=== PATIENT | male | born 1970 | race Caucasian/White ===

== ENCOUNTER 2018-12-14 09:34 | Day surgery (SDC) | payer OTHER ==
[2018-12-13 12:30] VITALS: BMI 32.1
[2018-12-14] MEDS ORDERED: Midazolam HCl 2 mg/2 ml Vial ONE (11:13)
[2018-12-14] MEDS ORDERED: Fentanyl 100 MCG/2 ML VIAL ONE ×2 (11:13)
[2018-12-14] MEDS ORDERED: Bacitracin Zinc Ointment 30 gm TUBE ONE (11:21)
[2018-12-14] MEDS ORDERED: Lidocaine 1% w/Epinephrine 1:100K 20 ML VIAL ONE (11:21)
[2018-12-14] MEDS ORDERED: Ondansetron PF 4 MG/2 ML Vial ONE (15:49)
[2018-12-14] MEDS ORDERED: Lidocaine 1% PF 5 ML VIAL ONE (15:49)
[2018-12-14] MEDS ORDERED: Dexamethasone 20 MG/5 ML VIAL ONE (15:49)
[2018-12-14] MEDS ORDERED: Succinylcholine Chloride 20 MG/ML 10 ml SYRINGE FS ONE (15:49)
[2018-12-14] MEDS ORDERED: PROPOFOL 200 MG/20 ML VIAL ONE (15:49)
--- NOTE | 2018-12-15 09:29 | OP ---
DATE OF PROCEDURE: 12/14/2018 PREOPERATIVE DIAGNOSIS: Left parotid mass. POSTOPERATIVE DIAGNOSIS: Left parotid mass. PROCEDURE PERFORMED: Left superficial parotidectomy with facial nerve dissection using facial nerve monitoring. PROCEDURE IN DETAIL: After consent was obtained, the patient was identified, brought to the OR, placed on the operating table in supine position. General endotracheal anesthesia was obtained. A facial nerve monitor was placed and documented to be functioning. We then proceeded with prepping and draping and positioned the patient and infiltrating 1% lidocaine with 1:100,000 epinephrine into the area of intended incision. The area of incision was demarcated and an incision was made with a 15 blade, and carried down through the skin and subcutaneous tissues. flap was elevated and secured to the skin. We then dissected anterior to the sternocleidomastoid and meticulously dissected down to the level of the pointer cartilage and the posterior belly of the digastric. The trunk of the facial nerve was identified and dissected anteriorly until the superior and inferior vein branches were identified. Then, we continued to identify smaller branches of facial nerve, that then allowed us to redirect our attention back to the tail of the parotid where the mass was encountered. The mass was then dissected hemostatically with bipolar cautery and suture ligations for hemostasis. Ultimately, with care not to avoid the facial nerve, the mass was removed and sent for permanent histologic evaluation. 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 The wound was then closed in layers. A drain was placed and the fascia was reapproximated to the anterior fascia of the sternocleidomastoid. The parotid fascia was reapproximated to the fascia of the sternocleidomastoid with a 3-0 Monocryl. Subcutaneous tissue was closed with 5-0 Monocryl and the skin was closed with 6-0 Prolene. Sterile dressing was applied. The patient was awakened, extubated, and taken to recovery room in stable condition prior to discharge home with facial nerve functioning normally. Job ID: [id number]
== END 2018-12-14 15:20 | disposition home or self-care (01) ==
LOC: SDC 09:34
PROVIDERS: ATTEND Specialist
PROC: 0CB90ZZ Excision of Left Parotid Gland, Open Approach (ICD-10-PCS; principal; 2018-12-14)
PROC: 00BM0ZZ Excision of Facial Nerve, Open Approach (ICD-10-PCS; principal; 2018-12-14)
DX: K11.8 Other diseases of salivary glands (principal); M26.609 Unspecified temporomandibular joint disorder, unspecified side; H93.8X3 Other specified disorders of ear, bilateral
CPT/HCPCS: 88307; 93005; 93010; J1100; J2001; J2250; J2405; J2704; J3010

== ENCOUNTER 2020-05-22 09:46 | Outpatient (CLI) | payer OTHER ==
--- NOTE | 2020-05-22 10:49 | MRI ---
MRI Lower Ext Jt Rt WO Con History: Medial meniscal tear Comparison: Radiograph May 19, 2020 Findings: Medial meniscus: Low-grade undersurface fraying posterior horn body junction and medial men iscal body without displaced tear. Lateral meniscus: Intact. The ACL, PCL, MCL and LCL are all normal. Extensor mechanism: Quadriceps tendon, patella and patellar tendon are intact. Cartilage: Patellofemoral compartment: Small to moderate chondral delamination of the medial patellar facet sol uring 11 mm in transverse by craniocaudad dimension of 5 mm, 50% depth. Adjacent chondral fraying. There also a few high-grade 75% chondral fissures of the inferior trochlear groove. Medial compartment: Grade II chondromalacia predominantly fraying throughout the medial compartment. Lateral compartment: Intact Soft tissues: Moderate popliteal cyst without dehiscence. Small volume joint effusion. No free bodies are appreciated. Muscles: Muscle signal and bulk is normal. Impression: 1. Low-grade undersurface fraying of the medial meniscal body and posterior horn body junction. No di splaced tear. 2. Intact cruciate ligaments and collateral ligaments. 3. Small popliteal cyst without dehiscence. 4. Focal 50% chondral delamination at risk for displacement of the medial patellar facet measuring 11 mm in transverse with a craniocaudal dimension of 5 mm. 5. 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
== END 2020-05-22 09:47 | disposition home or self-care (01) ==
LOC: SCSMRI 09:46
PROVIDERS: ATTEND Orthopaedic Surgery
DX: S83.241A Other tear of medial meniscus, current injury, right knee, initial encounter (principal); M71.21 Synovial cyst of popliteal space [Baker], right knee; M94.261 Chondromalacia, right knee

== ENCOUNTER 2020-06-06 06:58 | Outpatient (CLI) | payer OTHER ==
[2020-06-06 16:35] LABS: #Basophils 0.1 thou/uL (0.0-0.2); #Eosinphils 0.6 thou/uL (0.0-0.7); #Lymphocytes 2.2 thou/uL (1.20-3.40); #Monocytes 0.8 thou/uL (0.11-0.59); #Neutrophils 3.3 thou/uL (1.40-6.50); %Basophils 1.2 % (0.0-1.0); %Lymphocytes 31.5 % (21.0-51.0); %Monocytes 11.7 % (0.0-10.0); %Neutrophils 47.6 % (42.0-75.0); Hemoglobin 17.9 g/dL (14.0-18.0); Mean Corpuscular Volume 91.3 fL (78.0-98.0); Mean Platelet Volume 8.6 fL (7.4-10.4); Platelet Count 300 thou/uL (130-400); RBC Distribution Width 11.8 % (11.5-14.5); Red Blood Cell (RBC) Count 5.77 mill/uL (4.70-6.10)
[2020-06-06 16:36] LABS: Anion Gap 14 mmol/L (10-20); BUN (Urea Nitrogen) 14 mg/dL (8.9-20.6); Calc. Creatinine Clearance 0 mL/min (70-130); Calcium 9.5 mg/dL (7.8-10.44); Carbon Dioxide 22 mmol/L (22-29); Chloride 109 mmol/L (98-107); Estimated GFR-MDRD 79; Glucose 68 mg/dL (70-105); Potassium 4.1 mmol/L (3.5-5.1); Sodium 141 mmol/L (136-145)
[2020-06-07 12:01] LABS: SARS-CoV-2 MS2 Positive; SARS-CoV-2 N Gene Negative; SARS-CoV-2 S Gene Negative; SARS-CoV-2 by NAA Not Detected (NotDetected); SARS-CoV-2 orf1ab Negative
--- NOTE | 2020-06-10 14:19 | EKG ---
Test Reason : PREOP Blood Pressure : / mmHG Vent. Rate : 062 BPM Atrial Rate : 062 BPM P-R Int : 144 ms QRS Dur : 086 ms QT Int : 404 ms P-R-T Axes : 068 058 057 degrees QTc Int : 410 ms Normal sinus rhythm Normal ECG Confirmed by MAINOR HUANG ([id number]) on 06/10/2020 2:19:18 PM Referred By: IERO Confirmed By:MAINOR HUANG
== END 2020-06-06 06:59 | disposition home or self-care (01) ==
LOC: LABBT 06:58
PROVIDERS: ATTEND Orthopaedic Surgery
DX: Z01.818 Encounter for other preprocedural examination (principal); Z20.828 Contact with and (suspected) exposure to other viral communicable diseases; M22.8X1 Other disorders of patella, right knee
CPT/HCPCS: 80048; 85025; 87635; 93005; 93010; U0003

== ENCOUNTER 2020-06-11 07:23 | Day surgery (SDC) | payer OTHER ==
[2020-06-09 11:52] VITALS: BMI 32.1
[2020-06-11] MEDS ORDERED: PROPOFOL 20 ML ONE (08:09)
[2020-06-11] MEDS ORDERED: Midazolam HCl 2 mg/2 ml Vial ONE (08:18)
[2020-06-11] MEDS ORDERED: Fentanyl 100 MCG/2 ML VIAL ONE (08:18)
[2020-06-11] MEDS ORDERED: Famotidine/PF 20 mg/2ml Vial ONE (08:18)
[2020-06-11] MEDS ORDERED: Bupivacaine HCl 0.5%/Epinephrine 1:200,000/PF 30 ml Vial ONE (08:25)
[2020-06-11] MEDS ORDERED: Bupivacaine/Epinephrine 0.25% 30 ML VIAL ONE (08:25)
[2020-06-11] MEDS ORDERED: PROPOFOL 200 MG/20 ML VIAL ONE (09:32)
[2020-06-11] MEDS ORDERED: Metoclopramide HCl 10 MG/2 ML VIAL ONE (09:32)
[2020-06-11] MEDS ORDERED: Dexamethasone 20 MG/5 ML VIAL ONE (09:32)
[2020-06-11] MEDS ORDERED: Bupivacaine PF 0.5% 30 ML VIAL ONE (09:32)
[2020-06-11] MEDS ORDERED: Lidocaine 2% w/Epinephrine 1:200K 20 ML VIAL ONE (09:32)
[2020-06-11] MEDS ORDERED: Lidocaine 1% PF 5 ML VIAL ONE (09:32)
[2020-06-11] MEDS ORDERED: Ketorolac Tromethamine 30 MG/ML VIAL ONE (09:32)
[2020-06-11] MEDS ORDERED: Ondansetron PF 4 MG/2 ML Vial ONE (09:32)
--- NOTE | 2020-06-12 03:28 | OP ---
DATE OF PROCEDURE: 06/11/2020 PREOPERATIVE DIAGNOSIS: Right knee unstable chondral flap of the patella. POSTOPERATIVE DIAGNOSES: 1. Right knee unstable chondral flap of the patella. 2. Posterior horn medial meniscus tear. PROCEDURES PERFORMED: 1. Right knee arthroscopy with possible medial meniscectomy. 2. Chondroplasty of the patella. SHOE WORKER: There was no media center assistant. ANESTHESIA: The patient did have a general anesthetic as well as a local knee block. COMPLICATIONS: There were no complications. DISPOSITION: He did go to recovery room in stable condition. INDICATIONS: This is a 49-year-old male who comes in complaining of right knee pain and catching. On MRI, he was found to have an unstable chondral flap of the patella. At this time, he opted to have surgery. DESCRIPTION OF PROCEDURE: After all appropriate consent forms were explained and signed, he was taken to the operating room and at this time was given general anesthetic. Once the level of anesthesia was appropriate, tourniquet was placed on the right thigh. Leg was then placed in arthroscopic leg zavala. The limb was then prepped and draped in a standard surgical fashion. The limb was exsanguinated and the tourniquet was taken up to 300 mmHg. An inferolateral portal was established. Scope was placed into the knee joint. A needle localization technique was then used to make a medial working portal. Diagnostic arthroscopy commenced. In the notch, the ACL and PCL were probed and found to be intact. There was a dense piece of cartilage sitting in the medial compartment. This was removed with a shaver. The medial compartment was evaluated. Overall, medial articular tendon was in good condition. There was an area on the femur, which was fairly large in size, slightly greater than 2 cm, which showed some grade 2 changes with some cobblestone appearance to the medial femoral condyle. Significant treatment was needed. The medial meniscus was probed and found to have a tear in the posterior horn. A partial meniscectomy was performed using meniscal biter shaver back to a stable base. Lateral compartment showed the femur and tibia both to be intact. We then went into the lateral gutter. There was a dense piece of a small cartilage there, which we removed with a shaver. No more loose pieces were noted. The medial gutter did not have any loose pieces noted. On the patellofemoral joint, we found an area of the patella. There was some grade 2 nearing grade 3 changes, unstable chondral flaps was noted. This was more likely the area of the donor lesion, where the loose piece of cartilage was found slightly earlier, and the edges were just taken down to a stable base at this time with the shaver. The went through the knee one more time looking for any remaining loose pieces, and there were none. We thus removed the camera, drained the knee, and closed this portal with simple nylon stitch. A bulky sterile dressing was applied. Tourniquet was let down. Toes pinked up nicely. The patient was awakened and taken to recovery room in stable condition. All counts were correct at the end of the case. He did receive preoperative antibiotics. Job ID: [id number] [id number]
== END 2020-06-11 11:35 | disposition home or self-care (01) ==
LOC: SDC 07:23
PROVIDERS: ATTEND Orthopaedic Surgery
PROC: 0SBC4ZZ Excision of Right Knee Joint, Percutaneous Endoscopic Approach (ICD-10-PCS; principal; 2020-06-11)
DX: S83.241A Other tear of medial meniscus, current injury, right knee, initial encounter (principal); M23.8X1 Other internal derangements of right knee; J45.909 Unspecified asthma, uncomplicated; Z87.891 Personal history of nicotine dependence
CPT/HCPCS: J0690; J1100; J1885; J2250; J2405; J2704; J2765; J3010; S0020; S0028

== ENCOUNTER 2020-06-17 09:34 | Outpatient (CLI) | payer OTHER ==
--- NOTE | 2020-06-17 10:36 | ULT ---
EXAM: Right lower extremity venous Doppler US HISTORY: Right lower extremity edema and pain, knee surgery 7 days ago FINDINGS: Grayscale, color-flow, Doppler evaluation, spectral analysis of the right lower extremity venous stru ctures is performed with 2-D imaging. The right common femoral, superficial femoral, popliteal, posterior tibial, proximal greater saphenous and profunda femoral veins are imaged. There is normal luminal compressibility, flow, and augmentation the visualized deep venous structures of the right lower extremity. IMPRESSION: No evidence of a deep vein thrombosis in the right lower extremity.
== END 2020-06-17 09:35 | disposition home or self-care (01) ==
LOC: SCSULT 09:34
PROVIDERS: ATTEND Orthopaedic Surgery
DX: M79.89 Other specified soft tissue disorders (principal)